=== PATIENT | female | born 1950 | race Caucasian/White ===

== ENCOUNTER 2024-09-24 21:00 | Emergency (ER) | payer MEDICARE, BC ==
[2024-09-24 21:49] VITALS: RESP 18; TEMP 96.8; O2SAT 96
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
[2024-09-24 22:53] VITALS: BP 135/86; PULSE 79
--- NOTE | 2024-09-24 23:19 | XRAY ---
Indication: Pain. Comparison: None AP pelvis and 2 view left hip demonstrates osteopenia, intact left total hip arthroplasty, and mild right hip degenerative changes. No other bony, articular, or soft tissue abnormalities.
== END 2024-09-24 22:54 | disposition home or self-care (01) ==
LOC: ED 21:00
DX: S70.02XA Contusion of left hip, initial encounter (principal); M25.552 Pain in left hip; W03.XXXA Other fall on same level due to collision with another person, initial encounter
CPT/HCPCS: 73502; 99282; 99283